=== PATIENT | female | born 1930 | race Caucasian/White ===

== ENCOUNTER → 2017-12-23 | Outpatient (CLI) | payer OTHER, MEDICARE ==
[~2017-12-23] MED LIST: APAP500 PO; CALCIUM 600 +1 EAC1 PO; CHOLESTEROL MED; COLACE100 MG PO; FLAX OIL1000 MG PO; FOSAMAX 70 MG T70 M1; HYDROCODON-ACE1 EAC7 PO; MAG-AL PLUS SUS30 ML PO; MULTIVITAMINS PO; NABUMETONE 500500 M1 PO; NORCO 5-325 TA1 EACH PO; OSTEO BI-FLEX1 EAC1 PO; PROTONIX40 M2 PO; RELAFEN500 MG; RESTASIS1 EACH OPHTHALMIC; TRAMADOL 50 MG50 MG PO; ZOCOR40 MG PO; ZOFRAN ODT4 MG PO
== END ==
LOC: RAD 01:18
DX: Z12.31 Encounter for screening mammogram for malignant neoplasm of breast (principal)

== ENCOUNTER → 2019-01-05 | Outpatient (CLI) | payer OTHER, MEDICARE | LOC: RAD 02:21 | DX: Z12.31 Encounter for screening mammogram for malignant neoplasm of breast (principal) ==

== ENCOUNTER → 2020-01-06 | Outpatient (CLI) | payer OTHER, MEDICARE | LOC: BC 11:59 | DX: Z12.31 Encounter for screening mammogram for malignant neoplasm of breast (principal) ==

== ENCOUNTER 2020-01-15 21:06 | Emergency (ER) | payer OTHER, MEDICARE ==
[~2020-01-15] VITALS: Ht 160 cm; Wt 47.6 kg
[2020-01-15] MEDS ORDERED: NEURONTIN100 MG PO (21:44)
[2020-01-15 21:52] LABS: URINE BILIRUBIN NEGATIVE (Negative); URINE BLOOD NEGATIVE (Negative); URINE CLARITY CLEAR; URINE COLOR YELLOW; URINE GLUCOSE-RANDOM* NEGATIVE (Negative); URINE KETONES NEGATIVE (Negative); URINE LEUKOCYTES-REFLEX NEGATIVE (Negative); URINE NITRITE-REFLEX NEGATIVE (Negative); URINE PROTEIN (DIPSTICK) NEGATIVE (Negative); URINE SPECIFIC GRAVITY 1.025 (1.005-1.035); URINE UROBILINOGEN 0.2 E.U./dl (0.2-1.0)
[2020-01-15 22:08] LABS: ABSOLUTE NEUTROPHILS 3.2 thou/uL (1.4-8.2); BASOPHILS 0.7 % (0.0-2.0); EOSINOPHILS 1.9 % (0.0-3.0); HEMATOCRIT 33.4 % (37.0-47.0); HEMOGLOBIN 11.2 gm/dL (12.0-15.0); LYMPHOCYTES 34.7 % (24.0-44.0); MCHC 33.7 g/dL (28.0-37.0); MCV 92.1 fL (80.0-100.0); MONOCYTES 11.2 % (1.0-8.0); PLATELET COUNT 211 thou/uL (150-400); POLYS 51.5 % (36.0-66.0); RBC 3.63 mil/uL (4.20-5.00); RDW 13.1 % (10.5-14.5); WBC 6.3 thou/uL (4.0-11.0)
[2020-01-15 22:37] LABS: ANION GAP 9 mmol/L (7-16); BUN 18 mg/dL (7-18); CALCIUM 8.7 mg/dL (8.5-10.1); CHLORIDE 104 mmol/L (98-107); CO2 27 mmol/L (21-32); CREATININE 0.8 mg/dL (0.6-1.0); GLUCOSE 106 mg/dL (74-106); POTASSIUM 3.9 mmol/L (3.5-5.1); SODIUM 140 mmol/L (136-145)
[2020-01-15 22:42] LABS: ALBUMIN 3.6 g/dL (3.4-5.0); DIRECT BILIRUBIN < 0.1 mg/dL (<0.1-0.2); LIPASE 145 U/L (73-393); SGOT 28 U/L (15-37); SGPT 25 U/L (30-65); TOTAL BILIRUBIN 0.7 mg/dL (<0.1-1.0); TOTAL PROTEIN 6.5 g/dL (6.4-8.2)
[2020-01-16] MEDS ORDERED: BENTYL 10 MG CA10 MG PO (01:58)
[2020-01-16 02:02] VITALS: BP 124/80
== END 2020-01-16 02:14 | disposition home or self-care (01) ==
LOC: ER 21:06
PROVIDERS: Nurse Practitioner
DX: R10.32 Left lower quadrant pain (principal); E78.00 Pure hypercholesterolemia, unspecified; K21.9 Gastro-esophageal reflux disease without esophagitis; M19.90 Unspecified osteoarthritis, unspecified site; Z87.891 Personal history of nicotine dependence; Z90.49 Acquired absence of other specified parts of digestive tract

== ENCOUNTER → 2020-07-05 | Outpatient (CLI) | payer OTHER, MEDICARE ==
[~2020-07-05] MED LIST changes: +BENTYL 10 MG CA10 MG PO; +NEURONTIN100 MG PO
== END ==
LOC: SJCVC 16:56
PROVIDERS: ATTEND Internal Medicine Cardiovascular Disease
DX: R94.31 Abnormal electrocardiogram [ECG] [EKG] (principal); I49.1 Atrial premature depolarization; I44.1 Atrioventricular block, second degree; E78.00 Pure hypercholesterolemia, unspecified; Z79.899 Other long term (current) drug therapy; Z87.891 Personal history of nicotine dependence

== ENCOUNTER → 2020-07-06 | Outpatient (CLI) | payer OTHER, MEDICARE | LOC: SJCVCIMAG 10:14 | PROVIDERS: ATTEND Internal Medicine Cardiovascular Disease | DX: I08.3 Combined rheumatic disorders of mitral, aortic and tricuspid valves (principal); I27.20 Pulmonary hypertension, unspecified; R94.31 Abnormal electrocardiogram [ECG] [EKG] ==

== ENCOUNTER → 2020-07-06 | Outpatient (CLI) | payer OTHER, MEDICARE | LOC: LAB 08:27 | PROVIDERS: ATTEND Internal Medicine Cardiovascular Disease | DX: Z01.818 Encounter for other preprocedural examination (principal); Z11.59 Encounter for screening for other viral diseases ==

== ENCOUNTER 2020-07-10 09:30 | Observation (INO) | payer OTHER, MEDICARE ==
[~2020-07-10] VITALS: Ht 160 cm; Wt 48.5 kg
--- NOTE | ~2020-07-10 | P ---
[facility] [place] [address] PROCEDURE REPORT Name: SOLOMON BOYKIN Room #: 200-I [facility]#: [id number] Admission: 07/10/20 Attend Phys: Zac Schafer MD Discharge: Date of : 34 Report #: [id number] THIS REPORT FOR: cc: Ilir Bhatt MD, Rene P. MD ~ CC: Zac Bhatt DATE OF SERVICE: 07/10/2020 PACEMAKER IMPLANTATION PREOPERATIVE DIAGNOSIS: Complete heart block. POSTOPERATIVE DIAGNOSIS: Complete heart block. INDICATIONS: The patient is an 89-year-old female started recently noticing increased fatigue, shortness of breath, was noted to be in complete heart block in clinic. An echocardiogram shows a structurally normal heart, EF 55-60%. She is here for dual chamber pacemaker implantation. ANESTHESIA: The patient underwent MAC anesthesia with no anesthesia related complications. DESCRIPTION OF PROCEDURE: The patient underwent informed consent. We discussed the details of the procedure including the risks, which include but are not limited to bleeding, infection, vascular damage, cardiac perforation and pneumothorax. She understood these risks and was willing to proceed. The patient was brought to the EP laboratory in a fasting nonsedated state, prepped and draped in a sterile fashion. She received IV antibiotics and underwent a venogram showing patency of left axillary vein. Lidocaine was injected. Incision was made. Pocket created to the prepectoral fascia. Access was obtained twice in the left axillary vein, sheath positioned using modified Seldinger technique and the lead was positioned in the right ventricular apex, right atrial appendage both with adequate pacing and sensing thresholds. These leads were sutured to the prepectoral fascia using Ethibond. Device was connected. Tug test performed. Pocket irrigated and pocket closed in 2 layers using 2-0 for the deep layer, 3-0 for middle layer and surgical glue placed to the outer skin layer. The patient awoke neurologically and hemodynamically intact. No complications. No significant bleeding. The implanted pacemaker is a MedBlekko Cassi, MRI compatible device, serial number [id number]. The leads were Medtronic leads, both 5076 leads, the atrial lead, serial number was [id number] and the ventricular lead, serial number was [id number]. Atrial lead demonstrated P-wave 1.5 millivolts, pacing impedance 437 ohms, pacing threshold [facility] [address] [place] [address] PROCEDURE REPORT Name: SOLOMON BOYKIN Room #: 200-I [facility]#: [id number] Admission: 07/10/20 Attend Phys: Zac Schafer MD Discharge: Date of : 34 Report #: [id number] 0.9 volts at 0.4 milliseconds. The RV lead demonstrated an R-wave of 8.4 millivolts, pacing impedance of 608 ohms and a pacing threshold of 0.4 volts at 0.4 milliseconds. The device was programmed to DDDR 60-130 mode. CONCLUSION: 1. Successful dual chamber pacemaker implantation. 2. Satisfactory atrial and ventricular pacing and sensing thresholds. By: [id number] /nt
[2020-07-10 10:29] VITALS: BP 194/76
[2020-07-10 10:35] LABS: HEMATOCRIT 37.5 % (37.0-47.0); HEMOGLOBIN 12.3 gm/dL (12.0-15.0); MCH 30.6 pg (26.0-34.0); MCHC 32.9 g/dL (28.0-37.0); MCV 93.2 fL (80.0-100.0); RBC 4.02 mil/uL (4.20-5.00); RDW 13.6 % (10.5-14.5); WBC 9.7 thou/uL (4.0-11.0)
[2020-07-10 10:46] LABS: CREATININE 0.8 mg/dL (0.6-1.0); POTASSIUM 4.3 mmol/L (3.5-5.1); PROTIME 10.3 Seconds (9.3-11.4)
[2020-07-10 10:52] LABS: ALBUMIN 4.4 g/dL (3.4-5.0); TOTAL BILIRUBIN 0.5 mg/dL (0.2-1.0); TOTAL PROTEIN 7.7 g/dL (6.4-8.2)
[2020-07-10 15:15] VITALS: BP 159/91
[2020-07-10 16:00] VITALS: BP 117/61
--- NOTE | 2020-07-10 16:18 | NUR ---
TO UNIT FROM [employer] AT 1500, REPORT FROM AMADO LANCASTER. VSS. AAOX4. POST PACEMAKER PLACEMENT. HOB ELEVATED. ORIENTED TO UNIT, BEDREST, FALL PRECAUTIONS. ADULT DTR AT BEDSIDE. PACED WITH BBB. WILL CONTINUE TO FOLLOW CLOSELY.
[2020-07-10 17:35] VITALS: BP 119/67
[2020-07-10 19:10] VITALS: BP 143/75
--- NOTE | 2020-07-11 03:49 | NUR ---
ASSESSMENT DOCUMENTED.PT A/OX4.VSS.S/P PACEMAKER PLACEMENT.LEFT CHEST INCISION INTACT.IMMOBILIZER IN PLACE.PT PACED ATRIAL/VENTICULAR ON MONITOR.BRP WITH SBA TO BSC.DENIES PAIN OR ANY DISTRESS.POSSIBLE DISCHARGE TO HOME TODAY.WILL CONT TO MONITOR PER POC.
[2020-07-11 04:00] VITALS: BP 140/81
[2020-07-11 07:38] VITALS: BP 151/83
--- NOTE | 2020-07-11 09:25 | NUR ---
ASSUMED CARE OF PT AT SHIFT CHANGE, HEADED OUT TO CXR. PT IS A&0X4, SBA ONLY D/T IMMOBILIZER. PLANS FOR D/C, DAUGHTER WILL BE HERE AROUND NOON NOTWITHSTANDING ANYTHING UNTOWARD. ENCOURAGED HER TO USE CALL LIGHT FOR ANY NEEDS. SEE SEPARATE INTERVENTIONS FOR ASSESSMENTS. ROOM AIR, AND MAKES NEEDS KNOWN
[2020-07-11 11:23] VITALS: BP 151/83
== END 2020-07-11 12:31 | disposition home or self-care (01) ==
LOC: CATH 09:30 → 2N 15:30 → CATH 15:31 → 2N 15:31
PROVIDERS: ADMIT Internal Medicine Cardiovascular Disease; ATTEND Internal Medicine Cardiovascular Disease
DX: I44.2 Atrioventricular block, complete (principal); M54.9 Dorsalgia, unspecified; R10.9 Unspecified abdominal pain; R11.2 Nausea with vomiting, unspecified; Z79.899 Other long term (current) drug therapy
CPT/HCPCS: 70005

== ENCOUNTER → 2020-10-03 | Outpatient (CLI) | payer OTHER, MEDICARE | LOC: SJCVC 15:01 | PROVIDERS: ATTEND Internal Medicine Cardiovascular Disease | DX: R94.31 Abnormal electrocardiogram [ECG] [EKG] (principal); I44.2 Atrioventricular block, complete; E78.00 Pure hypercholesterolemia, unspecified; Z95.0 Presence of cardiac pacemaker; Z79.899 Other long term (current) drug therapy; Z87.891 Personal history of nicotine dependence ==

== ENCOUNTER → 2021-01-09 | Outpatient (CLI) | payer OTHER | LOC: BC 13:27 | PROVIDERS: ATTEND Family Medicine | DX: Z12.31 Encounter for screening mammogram for malignant neoplasm of breast (principal); N64.89 Other specified disorders of breast ==

== ENCOUNTER → 2021-10-04 | Outpatient (CLI) | payer OTHER | LOC: SJCVCIMAG 08:35 | PROVIDERS: ATTEND Internal Medicine Cardiovascular Disease | DX: I34.0 Nonrheumatic mitral (valve) insufficiency (principal); I44.2 Atrioventricular block, complete; I47.1 Supraventricular tachycardia; Z95.0 Presence of cardiac pacemaker; Z78.0 Asymptomatic menopausal state; Z87.891 Personal history of nicotine dependence; Z79.899 Other long term (current) drug therapy ==

== ENCOUNTER → 2022-01-14 | Outpatient (CLI) | payer OTHER | LOC: BC 13:08 | PROVIDERS: ATTEND Family Medicine | DX: Z12.31 Encounter for screening mammogram for malignant neoplasm of breast (principal) ==